=== PATIENT | female | born 2000 | race Hispanic/Latino ===

== ENCOUNTER 2020-11-05 09:15 | Outpatient (CLI) | payer OTHER | END 2020-11-05 09:16 | disposition home or self-care (01) | LOC: BICULT 09:15 | DX: N63.11 Unspecified lump in the right breast, upper outer quadrant (principal) ==

== ENCOUNTER 2021-01-28 06:04 | Day surgery (SDC) | payer OTHER ==
[2021-01-25 13:07] VITALS: BMI 24.7
[2021-01-28] MEDS ORDERED: Fentanyl 100 MCG/2 ML VIAL ONE (06:33)
[2021-01-28] MEDS ORDERED: Lidocaine 1% w/Epinephrine 1:100K 20 ML VIAL ONE (06:49)
[2021-01-28] MEDS ORDERED: Bupivacaine 0.25% HCL 30 ML VIAL ONE (06:49)
[2021-01-28] MEDS ORDERED: Methylene Blue 50 MG/10 ML AMPUL ONE (06:49)
[2021-01-28] MEDS ORDERED: Midazolam HCl 2 mg/2 ml Vial ONE (07:10)
[2021-01-28] MEDS ORDERED: Rocuronium Bromide 10 MG/ML (10ML VIAL) ONE (07:29)
[2021-01-28] MEDS ORDERED: Ondansetron PF 4 MG/2 ML Vial ONE (07:29)
[2021-01-28] MEDS ORDERED: Dexamethasone 20 MG/5 ML VIAL ONE (07:29)
[2021-01-28] MEDS ORDERED: Ketorolac Tromethamine 30 MG/ML VIAL ONE (07:29)
[2021-01-28] MEDS ORDERED: Glycopyrrolate 0.2 MG/ML 5 ML SYRINGE ONE (07:29)
[2021-01-28] MEDS ORDERED: Lidocaine 1% PF 5 ML VIAL ONE (07:29)
[2021-01-28] MEDS ORDERED: PROPOFOL 200 MG/20 ML VIAL ONE (07:29)
== END 2021-01-28 09:27 | disposition home or self-care (01) ==
LOC: SDC 06:04
PROVIDERS: ATTEND Surgery
PROC: 0HB8XZZ Excision of Buttock Skin, External Approach (ICD-10-PCS; principal; 2021-01-28)
DX: L05.91 Pilonidal cyst without abscess (principal)
CPT/HCPCS: 88304; J0690; J1100; J1885; J2250; J2405; J2704; J3010; Q9968; S0020